=== PATIENT | male | born 1945 | race Two or more races ===

== ENCOUNTER 2018-07-29 23:00 | Emergency (ER) | payer SELFPAY ==
[~2018-07-29] VITALS: Ht 177.8 cm; Wt 61.2 kg
[2018-07-30 00:10] LABS: Basophils # (auto) 0 uL; Eosinophils # (auto) 0 uL; Lymphocytes # (auto) 1.2 uL; Mean Corpuscular Hemoglobin 22.2 pg (28.0-32.0); Monocytes # (auto) 0.5 uL
[2018-07-30 00:12] LABS: Basophils % (auto) 0.3 % (0.0-2.0); Eosinophils % (auto) 0.6 % (0.0-7.0); Hemoglobin 9.9 g/dL (13.5-17.5); Lymphocytes % (auto) 18.9 % (10.0-50.0); Mean Corpuscular Volume 74.1 fL (80.0-100.0); Monocytes % (auto) 8.5 % (0.0-12.0); Neutrophils # (auto) 4.6 uL; Neutrophils % (auto) 71.7 % (37.0-80.0); Platelet Count (auto) 304 10^3/uL (140-450); Red Blood Cells 4.46 10^6/uL (4.5-5.90); Red Cell Distribution Width 16.6 % (11.8-14.3); White Blood Cell 6.4 10^3/uL (4.4-10.8)
[2018-07-30 00:26] LABS: Albumin 3.1 g/dL (3.4-5.0); BUN/Creatinine Ratio 20.7; Calcium 8.1 mg/dL (8.5-10.1); Potassium 3.6 mmol/L (3.5-5.1)
[2018-07-30 00:29] LABS: Bilirubin, Total 0.2 mg/dL (0.2-1.0); Total Protein 6.7 g/dL (6.4-8.2)
[2018-07-30 01:15] LABS: Urine Bacteria NONE SEEN /hpf (None Seen); Urine Blood Negative /uL (Negative); Urine Mucus FEW (None Seen); Urine Specific Gravity 1.007 (1.001-1.035); Urine WBC 1 /hpf (0 - 3)
[2018-07-30] MEDS ORDERED: MORPHINE SULFATE 4 MG/ML SYR/VIAL IV ONE (01:15)
[2018-07-30] MEDS ORDERED: ONDANSETRON HCL 4 MG/2 ML VIAL IV ONE (01:15)
[2018-07-30 01:22] LABS: Amphetamine Screen, Urine NEGATIVE (NEGATIVE); Barbiturate Scree,Urine NEGATIVE (NEGATIVE); Benzodiazephine Screen, Urine NEGATIVE (NEGATIVE); Cannabinoid Screen, Urine POSITIVE (NEGATIVE); Cocaine Screen, Urine NEGATIVE (NEGATIVE); Opiate Scree,Urine NEGATIVE (NEGATIVE); Phencyclidine Screen, Urine NEGATIVE (NEGATIVE)
[2018-07-30 06:36] VITALS: BP 142/80
== END 2018-07-30 07:00 | disposition home or self-care (01) ==
LOC: ER 23:00
DX: S16.1XXA Strain of muscle, fascia and tendon at neck level, initial encounter (principal); S43.492A Other sprain of left shoulder joint, initial encounter; M54.16 Radiculopathy, lumbar region; F17.210 Nicotine dependence, cigarettes, uncomplicated; F12.10 Cannabis abuse, uncomplicated; W19.XXXA Unspecified fall, initial encounter; Y93.89 Activity, other specified; Y99.8 Other external cause status; Y92.89 Other specified places as the place of occurrence of the external cause
CPT/HCPCS: 36415; 72125; 72131; 73030; 80053; 80307; 80320; 81001; 85025; 96374; 96375; 99285; J2270; J2405